=== PATIENT | female | born 1960 | race African-American/Black ===

== ENCOUNTER 2017-10-31 22:26 | Inpatient (IN) | payer MEDICARE, MEDICAID ==
[~2017-10-31] VITALS: Ht 154.9 cm; Wt 108.2 kg
[~2017-10-31 22:26] MED LIST: LASIX
[2017-10-31] MEDS ORDERED: METHYLPREDNISOLONE SOD SUCC 125 MG/2 ML VIAL IV STA (23:03)
[2017-10-31] MEDS ORDERED: MAGNESIUM 2 G PREMIX 50 ML IV ONE (23:15)
[2017-10-31] MEDS ORDERED: ASPIRIN 81MG TABLET PO ONE (23:15)
[2017-10-31 23:37] LABS: BASOPHILS % 0.5 % (0.0-2.0); EOSINOPHILS % 0.1 % (0.0-5.0); HEMATOCRIT. 26.6 % (36.0-48.0); LYMPHOCYTES % 9.4 % (20.0-50.0); MEAN CORPUSCULAR HEMOGLOBIN 25.6 pg (28.0-32.0); MEAN CORPUSCULAR VOLUME 85.5 fL (81.0-99.0); MEAN PLATELET VOLUME 9.5 fl (7.4-10.4); MONOCYTES % 7.8 % (2.0-8.0); NEUTROPHILS % 82.2 % (40.0-76.0); PLATELET 329 x1000/uL (130-400); RED BLOOD CELL COUNT 3.11 mill/uL (4.2-5.4); RED CELL DISTRIBUTION WIDTH 15.6 % (11.6-14.6)
[2017-10-31 23:45] LABS: INR 1.2; PARTIAL THROMBOPLASTIN TIME 22.8 sec (23.4-31.0); PROTHROMBIN TIME 12.5 sec (9.4-11.6)
[2017-10-31] MEDS ORDERED: LEVOFLOXACIN 750MG PREMIX 150 ML IV NR (23:45)
[2017-10-31 23:54] LABS: CARBON DIOXIDE 29 mEq/L (21-32); CHLORIDE 94 mEq/L (98-107); TROPONIN I < 0.02 ng/mL (0.00-0.04)
[2017-11-01] LABS: CLARITY URINE CLEAR (CLEAR); COLOR URINE YELLOW (YELLOW); KETONES URINE NEGATIVE (NEGATIVE); LEUKOCYTE ESTERASE URINE NEGATIVE (NEGATIVE); NITRITE URINE NEGATIVE (NEGATIVE); OCCULT BLOOD URINE NEGATIVE (NEGATIVE); PROTEIN URINE TRACE (NEGATIVE); SPECIFIC GRAVITY URINE 1.016 (1.005-1.030)
[2017-11-01] MEDS ORDERED: FUROSEMIDE 40MG/4ML VIAL IVP ONE (00:45)
[2017-11-01] MEDS ORDERED: SODIUM CHLORIDE 0.9% 1,000 ML IV ONE (00:45)
[2017-11-01] MEDS ORDERED: GUAIFENESIN 200MG/10ML SUGAR FREE UDC PO PRN (07:45)
[2017-11-01] MEDS ORDERED: ACETAMINOPHEN 325MG TABLET PO PRN (07:45)
[2017-11-01] MEDS ORDERED: IPRATROPIUM/ALBUTEROL 0.5-3(2.5)MG/3ML NEB INH PRN (07:45)
[2017-11-01] MEDS ORDERED: ACETAMINOPHEN 650MG/20.3ML UDC GT PRN (07:45)
[2017-11-01] MEDS ORDERED: CLONIDINE 0.1MG TABLET PO PRN (07:45)
[2017-11-01] MEDS ORDERED: DIPHENHYDRAMINE 50MG/ML VIAL IV PRN (07:45)
[2017-11-01] MEDS ORDERED: CEFTRIAXONE 1 G PREMIX 50 ML IV SCH (07:45)
[2017-11-01] MEDS ORDERED: DOCUSATE SODIUM 100MG CAPSULE PO PRN (07:45)
[2017-11-01] MEDS ORDERED: AZITHROMYCIN 500 MG in DEXT 5% WATER 250 ML IV SCH (07:45)
[2017-11-01] MEDS ORDERED: DEXTROSE 50% WATER 50ML SYRINGE IV PRN (07:45)
[2017-11-01] MEDS ORDERED: NA PHOS,M-B/NA PHOS,DI-BA ENEMA 118ML PR PRN (07:45)
[2017-11-01] MEDS ORDERED: MAGNESIUM/ALUMINUM HYDROXIDE/SIMETHICONE 30ML UDC PO PRN (07:45)
[2017-11-01] MEDS ORDERED: MORPHINE SULFATE 2 MG/ML CPJ (NOT FOR IM USE) IV PRN (07:45)
[2017-11-01] MEDS ORDERED: ACETAMINOPHEN 650MG SUPP PR PRN (07:45)
[2017-11-01] MEDS ORDERED: INSULIN LISPRO 100 UNITS/ML SUBCUT SCH (08:20)
[2017-11-01 10:00] VITALS: BP 138/89
[2017-11-01] MEDS: INSULIN LISPRO 100 UNITS/ML SUBCUT SCH ×4 (10:39→21:42)
[2017-11-01] MEDS: TRAMADOL 50MG TABLET PO PRN (10:40)
[2017-11-01] MEDS: BLOOD SUGAR DIAGNOSTIC STRIP TEST SCH ×4 (10:49→21:00)
[2017-11-01] MEDS: IPRATROPIUM/ALBUTEROL 0.5-3(2.5)MG/3ML NEB INH SCH ×2 (10:53→21:08)
[2017-11-01] MEDS ORDERED: [UNRECOGNIZED DRUG - OTHER] XX SCH (11:00)
[2017-11-01] MEDS ORDERED: LIDOCAINE HCL/PF 1% 2ML VIAL ONE (11:49)
[2017-11-01 11:58] LABS: *AMPHETAMINES SCREEN URINE NEGATIVE (NEGATIVE); *BARBITURATES SCREEN URINE NEGATIVE (NEGATIVE); *BENZODIAZEPINES SCREEN URINE NEGATIVE (NEGATIVE); *COCAINE SCREEN URINE NEGATIVE (NEGATIVE); CANNABINOID URINE SCREEN NEGATIVE (NEGATIVE); METHADONE URINE SCREEN NEGATIVE (NEGATIVE); OPIATES URINE SCREEN NEGATIVE (NEGATIVE); PHENCYCLIDINE URINE SCREEN NEGATIVE (NEGATIVE)
[2017-11-01] MEDS ORDERED: APIX5TAB PO (11:58)
[2017-11-01] MEDS ORDERED: METF-815 PO (11:58)
[2017-11-01] MEDS ORDERED: ESOM40CA PO (11:58)
[2017-11-01] MEDS ORDERED: LOSA100T14 PO (11:58)
[2017-11-01] MEDS ORDERED: AMIO100T4 PO (11:58)
[2017-11-01] MEDS ORDERED: SERT-112 PO (11:58)
[2017-11-01] MEDS ORDERED: ASPI-1159 PO (11:58)
[2017-11-01 12:00] VITALS: BP 102/66
[2017-11-01] MEDS: AZITHROMYCIN 500 MG in DEXT 5% WATER 250 ML IV SCH (12:17)
[2017-11-01] MEDS: ENOXAPARIN 30MG/0.3ML SYR SUBCUT SCH ×2 (12:17→21:40)
[2017-11-01 12:24] LABS: BG BASE EXCESS 3.1 mmol/L (-2.0-2.0); BG CARBOXYHEMOGLOBIN 1.1 % (0.5-1.5); BG DEOXYHEMOGLOBIN 14.6 % (0.0-5.0); BG METHEMOGLOBIN 0.2 % (0.0-1.5); BG OXYGEN SATURATION 85.2 % (92.0-98.5); BG OXYHEMOGLOBIN 84.1 % (94.0-97.0); BG PCO2 60.5 mmHg (35.0-45.0); BG PH 7.313 (7.350-7.450); BG PO2 57.9 mmHg (75.0-100.0); BG SAMPLE SITE LEFT RADIAL; BG TOTAL HEMOGLOBIN 8.4 g/dL (12.0-18.0); BG VENT MODE NASAL CANNULA
[2017-11-01] MEDS: CEFTRIAXONE 1 G PREMIX 50 ML IV SCH (13:18)
[2017-11-01] MEDS: SODIUM CHLORIDE 0.9% INJ 3ML FLUSH IVF SCH ×2 (15:11→21:50)
[2017-11-01] MEDS: LORAZEPAM 2MG/ML CPJ IV PRN (15:11)
[2017-11-01 16:00] VITALS: BP 132/71
[2017-11-01 16:16] LABS: CREATINE KINASE 95 IU/L (26-192); TROPONIN I < 0.02 ng/mL (0.00-0.04)
[2017-11-01 16:47] LABS: BG BASE EXCESS 4.8 mmol/L (-2.0-2.0); BG BILEVEL POS AIRWAY PRESSURE 15/5; BG CARBOXYHEMOGLOBIN 1.1 % (0.5-1.5); BG DEOXYHEMOGLOBIN 7.1 % (0.0-5.0); BG METHEMOGLOBIN 0.3 % (0.0-1.5); BG OXYGEN SATURATION 92.8 % (92.0-98.5); BG OXYHEMOGLOBIN 91.5 % (94.0-97.0); BG PCO2 65.7 mmHg (35.0-45.0); BG PH 7.306 (7.350-7.450); BG PO2 75.3 mmHg (75.0-100.0); BG SAMPLE SITE LEFT RADIAL; BG TOTAL HEMOGLOBIN 8.4 g/dL (12.0-18.0); BG VENT MODE MASK - BIPAP; BG VENT RATE 12 set
[2017-11-01] MEDS: METHYLPREDNISOLONE SOD SUCC 40 MG/ML VIAL IV SCH ×2 (17:34→21:55)
[2017-11-01 18:00] VITALS: BP 140/86
[2017-11-01 19:05] LABS: CLARITY URINE CLOUDY (CLEAR); COLOR URINE YELLOW (YELLOW); KETONES URINE NEGATIVE (NEGATIVE); LEUKOCYTE ESTERASE URINE TRACE (NEGATIVE); NITRITE URINE NEGATIVE (NEGATIVE); OCCULT BLOOD URINE 3+ (NEGATIVE); PROTEIN URINE 1+ (NEGATIVE); SPECIFIC GRAVITY URINE 1.019 (1.005-1.030)
[2017-11-01 20:00] VITALS: BP 147/89
[2017-11-01] MEDS: BUDESONIDE 0.5MG/2ML NEB HHN SCH (21:08)
[2017-11-01 22:00] VITALS: BP 159/93
[2017-11-02] VITALS (12 sets, daily range): BP systolic 120–150; BP diastolic 75–90
[2017-11-02] LABS: CREATINE KINASE 79 IU/L (26-192); TROPONIN I < 0.02 ng/mL (0.00-0.04)
[2017-11-02] MEDS: IPRATROPIUM/ALBUTEROL 0.5-3(2.5)MG/3ML NEB INH SCH ×3 (02:08→13:39)
[2017-11-02] MEDS: METHYLPREDNISOLONE SOD SUCC 40 MG/ML VIAL IV SCH ×3 (05:51→21:58)
[2017-11-02] MEDS: SODIUM CHLORIDE 0.9% INJ 3ML FLUSH IVF SCH ×3 (05:52→22:19)
[2017-11-02 06:13] LABS: HEMOGLOBIN. 7.4 g/dL (12.0-16.0); MEAN CORPUSCULAR HEMOGLOBIN 25.8 pg (28.0-32.0); MEAN CORPUSCULAR VOLUME 83.9 fL (81.0-99.0); MEAN PLATELET VOLUME 9.4 fl (7.4-10.4); PLATELET 279 x1000/uL (130-400); RED BLOOD CELL COUNT 2.86 mill/uL (4.2-5.4); RED CELL DISTRIBUTION WIDTH 15.7 % (11.6-14.6)
[2017-11-02] MEDS: BLOOD SUGAR DIAGNOSTIC STRIP TEST SCH ×4 (06:50→21:00)
[2017-11-02] MEDS: INSULIN LISPRO 100 UNITS/ML SUBCUT SCH ×4 (07:24→21:34)
[2017-11-02] MEDS: BUDESONIDE 0.5MG/2ML NEB HHN SCH (07:30)
[2017-11-02 07:52] LABS: NUCLEATED RED BLOOD CELLS 2 /100 WBC; PLATELET ESTIMATE NORMAL
[2017-11-02] MEDS: ENOXAPARIN 30MG/0.3ML SYR SUBCUT SCH ×2 (08:05→21:37)
[2017-11-02] MEDS: FUROSEMIDE 20MG/2ML VIAL IVP SCH (08:05)
[2017-11-02 08:25] LABS: CARBON DIOXIDE 39 mEq/L (21-32); CHLORIDE 95 mEq/L (98-107); HDL CHOLESTEROL 39 mg/dL (40-59); LDL CHOLESTEROL 66 mg/dL (5-100)
[2017-11-02] MEDS: AZITHROMYCIN 500 MG in DEXT 5% WATER 250 ML IV SCH (12:04)
[2017-11-02 15:12] LABS: INR 1.3; PROTHROMBIN TIME 14.1 sec (9.4-11.6)
[2017-11-02 15:29] LABS: AMMONIA 54 uMol/L (<32)
[2017-11-02 15:52] LABS: HEPATITIS B SURFACE ANTIGEN NEGATIVE
[2017-11-02] MEDS: TRAMADOL 50MG TABLET PO PRN (16:20)
[2017-11-02 16:21] LABS: HEPATITIS B CORE AB IGM NEGATIVE
[2017-11-02] MEDS: ONDANSETRON HCL 4MG/2ML VIAL IV PRN (16:21)
[2017-11-02 16:22] LABS: HEPATITIS A AB IGM NEGATIVE (NEGATIVE)
[2017-11-02] MEDS: CEFTRIAXONE 1 G PREMIX 50 ML IV SCH (17:06)
[2017-11-02] MEDS ORDERED: LORAZEPAM 0.5MG TABLET PO NR (18:15)
[2017-11-03] VITALS (10 sets, daily range): BP systolic 114–156; BP diastolic 67–85
[2017-11-03] MEDS: IPRATROPIUM/ALBUTEROL 0.5-3(2.5)MG/3ML NEB INH SCH ×4 (04:03→20:46)
[2017-11-03] MEDS: SODIUM CHLORIDE 0.9% INJ 3ML FLUSH IVF SCH ×3 (05:44→22:57)
[2017-11-03] MEDS: METHYLPREDNISOLONE SOD SUCC 40 MG/ML VIAL IV SCH ×3 (05:44→18:15)
[2017-11-03] MEDS: INSULIN LISPRO 100 UNITS/ML SUBCUT SCH ×4 (06:22→20:47)
[2017-11-03] MEDS: BLOOD SUGAR DIAGNOSTIC STRIP TEST SCH ×4 (06:50→20:29)
[2017-11-03] MEDS: BUDESONIDE 0.5MG/2ML NEB HHN SCH (07:32)
[2017-11-03] MEDS: FUROSEMIDE 20MG/2ML VIAL IVP SCH (09:01)
[2017-11-03] MEDS: ENOXAPARIN 30MG/0.3ML SYR SUBCUT SCH ×2 (09:01→20:48)
[2017-11-03] MEDS: AZITHROMYCIN 500 MG in DEXT 5% WATER 250 ML IV SCH (12:23)
[2017-11-03] MEDS: CEFTRIAXONE 1 G PREMIX 50 ML IV SCH (12:43)
[2017-11-03 14:45] LABS: HEMATOCRIT. 26.7 % (36.0-48.0); HEMOGLOBIN. 8.1 g/dL (12.0-16.0); MEAN CORPUSCULAR HEMOGLOBIN 25.7 pg (28.0-32.0); MEAN PLATELET VOLUME 9.3 fl (7.4-10.4); PLATELET 312 x1000/uL (130-400); RED BLOOD CELL COUNT 3.15 mill/uL (4.2-5.4); RED CELL DISTRIBUTION WIDTH 15.6 % (11.6-14.6)
[2017-11-03 15:03] LABS: CARBON DIOXIDE 38 mEq/L (21-32); CHLORIDE 93 mEq/L (98-107)
[2017-11-03 15:20] LABS: PLATELET ESTIMATE NORMAL
[2017-11-03] MEDS: LORAZEPAM 2MG/ML CPJ IV PRN (16:05)
[2017-11-03] MEDS: FLUTICASONE/VILANTEROL 200-25 BLST.W.DEV ORI SCH (17:00)
[2017-11-03] MEDS: LORAZEPAM 0.5MG TABLET PO PRN (20:48)
[2017-11-03] MEDS: TRAMADOL 50MG TABLET PO PRN (20:49)
[2017-11-04] VITALS (12 sets, daily range): BP systolic 118–148; BP diastolic 50–84
[2017-11-04] MEDS: IPRATROPIUM/ALBUTEROL 0.5-3(2.5)MG/3ML NEB INH SCH ×4 (01:12→20:47)
[2017-11-04] MEDS: SODIUM CHLORIDE 0.9% INJ 3ML FLUSH IVF SCH ×3 (06:07→20:49)
[2017-11-04] MEDS: BLOOD SUGAR DIAGNOSTIC STRIP TEST SCH ×4 (06:50→20:48)
[2017-11-04 07:43] LABS: AMMONIA 37 uMol/L (<32)
[2017-11-04] MEDS: FLUTICASONE/VILANTEROL 200-25 BLST.W.DEV ORI SCH ×2 (09:00→18:21)
[2017-11-04] MEDS: INSULIN LISPRO 100 UNITS/ML SUBCUT SCH ×4 (09:06→20:48)
[2017-11-04] MEDS: METHYLPREDNISOLONE SOD SUCC 40 MG/ML VIAL IV SCH (09:16)
[2017-11-04] MEDS: ENOXAPARIN 30MG/0.3ML SYR SUBCUT SCH ×2 (09:17→20:48)
[2017-11-04] MEDS: FUROSEMIDE 20MG/2ML VIAL IVP SCH (09:17)
[2017-11-04] MEDS: AZITHROMYCIN 500 MG in DEXT 5% WATER 250 ML IV SCH (13:04)
[2017-11-04] MEDS: CEFTRIAXONE 1 G PREMIX 50 ML IV SCH (13:15)
[2017-11-04] MEDS: ONDANSETRON HCL 4MG/2ML VIAL IV PRN (13:41)
[2017-11-04] MEDS: TRAMADOL 50MG TABLET PO PRN (13:41)
[2017-11-04] MEDS: LORAZEPAM 0.5MG TABLET PO PRN (13:42)
[2017-11-04] MEDS: SERTRALINE HCL 50MG TABLET PO SCH (18:21)
[2017-11-04] MEDS ORDERED: SERTRALINE HCL 50MG TABLET PO SCH (21:00)
[2017-11-04] MEDS ORDERED: TEMAZEPAM 15MG CAPSULE PO PRN (21:00)
[2017-11-05] VITALS: BP 118/68
[2017-11-05 02:00] VITALS: BP 122/72
[2017-11-05] MEDS: IPRATROPIUM/ALBUTEROL 0.5-3(2.5)MG/3ML NEB INH SCH ×2 (02:17→08:10)
[2017-11-05 04:00] VITALS: BP 156/82
[2017-11-05 06:00] VITALS: BP 117/62
[2017-11-05] MEDS: SODIUM CHLORIDE 0.9% INJ 3ML FLUSH IVF SCH (06:41)
[2017-11-05] MEDS: BLOOD SUGAR DIAGNOSTIC STRIP TEST SCH (06:41)
[2017-11-05 08:00] VITALS: BP 149/92
[2017-11-05] MEDS ORDERED: ALBU2.5V13 NEB (08:08)
[2017-11-05] MEDS ORDERED: P20 PO (08:16)
[2017-11-05] MEDS ORDERED: FURO-152 PO (08:19)
[2017-11-05 08:55] LABS: BASOPHILS % 0.5 % (0.0-2.0); EOSINOPHILS % 0.1 % (0.0-5.0); HEMATOCRIT. 28.7 % (36.0-48.0); HEMOGLOBIN. 8.6 g/dL (12.0-16.0); LYMPHOCYTES % 20.1 % (20.0-50.0); MEAN CORPUSCULAR HEMOGLOBIN 25.3 pg (28.0-32.0); MEAN CORPUSCULAR VOLUME 84.4 fL (81.0-99.0); MEAN PLATELET VOLUME 9.8 fl (7.4-10.4); MONOCYTES % 11.7 % (2.0-8.0); NEUTROPHILS % 67.6 % (40.0-76.0); PLATELET 363 x1000/uL (130-400); RED CELL DISTRIBUTION WIDTH 15.6 % (11.6-14.6)
[2017-11-05] MEDS: ENOXAPARIN 30MG/0.3ML SYR SUBCUT SCH (09:00)
[2017-11-05] MEDS ORDERED: PREDNISONE 20MG TABLET PO SCH (09:00)
[2017-11-05] MEDS: FUROSEMIDE 20MG/2ML VIAL IVP SCH (09:01)
[2017-11-05] MEDS: INSULIN LISPRO 100 UNITS/ML SUBCUT SCH (09:01)
[2017-11-05] MEDS: SERTRALINE HCL 50MG TABLET PO SCH (09:02)
[2017-11-05] MEDS: FLUTICASONE/VILANTEROL 200-25 BLST.W.DEV ORI SCH (09:03)
[2017-11-05 09:04] LABS: CHLORIDE 94 mEq/L (98-107)
[2017-11-05 09:05] LABS: INR 1.1; PARTIAL THROMBOPLASTIN TIME 21.6 sec (23.4-31.0); PROTHROMBIN TIME 11.4 sec (9.4-11.6)
[2017-11-05] MEDS ORDERED: SILDENAFIL CITRATE 20MG TABLET PO SCH (10:00)
[2017-11-05 10:16] LABS: CARBON DIOXIDE 41 mEq/L (21-32)
[2017-11-05] MEDS: AZITHROMYCIN 500 MG in DEXT 5% WATER 250 ML IV SCH (11:35)
[2017-11-05] MEDS: TRAMADOL 50MG TABLET PO PRN (11:35)
[2017-11-05 11:45] VITALS: BP 130/68
== END 2017-11-05 12:17 | disposition home or self-care (01) | DRG 871 ==
LOC: ER 22:45 → EDBEDREQ 23:07 → EDBEDREQTM 23:11 → EDBEDREQ 23:11 → 8WST 11-01 00:41 → EDBEDREQ 11-01 01:08 → EDBEDREQTM 11-01 01:08 → EDBEDREQDT 11-01 01:08 → ENRESERV 11-01 07:33 → 3WST 11-01 15:49
PROVIDERS: ADMIT Family Medicine; ATTEND Family Medicine
PROC: 5A09457 Assistance with Respiratory Ventilation, 24-96 Consecutive Hours, Continuous Positive Airway Pressure (ICD-10-PCS; principal; 2017-11-01)
PROC: 5A09357 Assistance with Respiratory Ventilation, Less than 24 Consecutive Hours, Continuous Positive Airway Pressure (ICD-10-PCS; 2017-11-05)
DX: A41.9 Sepsis, unspecified organism (principal); J18.9 Pneumonia, unspecified organism; J96.21 Acute and chronic respiratory failure with hypoxia; I50.33 Acute on chronic diastolic (congestive) heart failure; I27.29 Other secondary pulmonary hypertension; I13.0 Hypertensive heart and chronic kidney disease with heart failure and stage 1 through stage 4 chronic kidney disease, or unspecified chronic kidney disease; E11.22 Type 2 diabetes mellitus with diabetic chronic kidney disease; E66.01 Morbid (severe) obesity due to excess calories; J44.0 Chronic obstructive pulmonary disease with (acute) lower respiratory infection; J44.1 Chronic obstructive pulmonary disease with (acute) exacerbation; Z68.41 Body mass index [BMI] 40.0-44.9, adult; D64.9 Anemia, unspecified; G47.33 Obstructive sleep apnea (adult) (pediatric); I27.81 Cor pulmonale (chronic); K76.1 Chronic passive congestion of liver; M13.0 Polyarthritis, unspecified; N18.9 Chronic kidney disease, unspecified; Z66 Do not resuscitate; Z96.651 Presence of right artificial knee joint; Z85.3 Personal history of malignant neoplasm of breast; Z88.5 Allergy status to narcotic agent; Z90.11 Acquired absence of right breast and nipple; Z90.710 Acquired absence of both cervix and uterus; Z92.21 Personal history of antineoplastic chemotherapy; Z92.3 Personal history of irradiation; Z99.81 Dependence on supplemental oxygen; Z88.6 Allergy status to analgesic agent; Z88.0 Allergy status to penicillin
CPT/HCPCS: 36415; 36600; 71045; 76705; 76770; 80048; 80053; 80061; 80076; 80305; 81001; 81003; 82140; 82375; 82550; 82805; 82962; 83036; 83605; 83880; 84443; 84484; 85025; 85379; 85610; 85730; 86705; 86709; 86803; 86850; 86900; 86920; 87040; 87340; 87804; 93005; 93306; 94640; 94660; 94664; 96365; 96367; 96375; 97116; 97163; 99285; J0456; J0696; J1650; J1815; J1940; J1956; J2060; J2405; J2920; J2930; J3475; J3490; J7030; J7040; J7050; J7060; J7512; J7620; J7626; A4315